=== PATIENT | female | born 1990 | race Caucasian/White ===

== ENCOUNTER 2018-05-25 18:12 | Outpatient (CLI) | END 2018-05-25 22:35 | disposition home or self-care (01) ==

== ENCOUNTER 2018-05-27 09:09 | Outpatient (CLI) | END 2018-05-27 13:58 | disposition home or self-care (01) ==

== ENCOUNTER 2018-05-31 12:46 | Outpatient (CLI) | END 2018-05-31 15:08 | disposition home or self-care (01) ==

== ENCOUNTER 2018-06-04 20:35 | Inpatient (IN) | END 2018-06-09 18:35 | disposition home or self-care (01) | DRG 807 ==